=== PATIENT | male | born 1970 | race Two or more races ===

== ENCOUNTER 2024-07-25 12:38 | Emergency (ER) | payer OTHER ==
[~2024-07-25] VITALS: Ht 177.8 cm; Wt 77.3 kg
--- NOTE | 2024-07-25 12:50 | ED.PDOC ---
HPI Comments 53 y/o M, BIBA, with PMHx of anxiety presents to the ED for CC of chest pain. EMS reports, patient is coming from home where he complains of substernal chest pain [id number]. Patient relays, that he has been experiencing substernal chest pain [id number] due to his anxiety caused by his aunt passing x4days ago. Patient states, that he smoked THC out of an electronic pen to try and relieve symptoms; symptoms worsened with increase anxiety and right arm numbness. Patient comments on, taking Aspirin and doubling up on his Prozac medication. Upon arrival to scene, patient was found to be tachycardiac with a HR of 165; Patient was given a 300mL Bolus in route to the ED. Patient denies headache, blurred vision, nausea, or vomiting. No other symptoms or modifying factors present at this time. 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, Medications, Allergies Allergies: Coded Allergies: NO KNOWN ALLERGIES (Unverified , 07/25/24) Information Source: Patient, Emergency Med Personnel Mode of Arrival: EMS Severity: Moderate Timing: Hours Duration: Since onset Prehospital treatment: IVF Location: Substernal Radiation: No Radiation Onset: At Rest Cardiac Risk Factors: None PE Risk Factors: None History of: None Modifying Factors: Nothing Associated Signs and Symptoms: None Past Medical History PAST MEDICAL HISTORY: Anxiety Surgical History: Cholecystectomy Family History Family History: Unknown Social History Smoker: Non-Smoker Alcohol: Denies ETOH Use Drugs: Marijuana Lives In: Home Constitutional: denies: chills, diaphoresis, fatigue, fever, malaise, sweats, weakness, others EENTM: denies: blurred vision, double vision, ear bleeding, ear discharge, ear drainage, ear pain, ear ringing, eye pain, eye redness, hearing loss, mouth pain, mouth swelling, nasal discharge, nose bleeding, nose congestion, nose pain, photophobia, tearing, throat pain, throat swelling, voice changes, others Respiratory: denies: cough, hemoptysis, orthopnea, SOB at rest, shortness of breath, SOB with excertion, stridor, wheezing, others Cardiovascular: reports: chest pain; denies: dizzy spells, diaphoresis, Dyspnea on exertion, edema, irregular heart beat, left arm pain, lightheadedness, palpitations, PND, syncope, others Gastrointestinal: denies: abdomen distended, abdominal pain, blood streaked bowels, constipated, diarrhea, dysphagia, difficulty swallowing, hematemesis, melena, nausea, poor appetite, poor fluid intake, rectal bleeding, rectal pain, vomiting, others Genitourinary: denies: burning, dysuria, flank pain, frequency, hematuria, incontinence, penile discharge, penile sore, pain, testicle pain, testicle swelling, urgency, others Neurological: denies: dizziness, fainting, headache, left sided numbness, left sided weakness, numbness, paresthesia, pre-existing deficit, right sided num bness, right sided weakness, seizure, speech problems, tingling, tremors, weakness, others Musculoskeletal: denies: back pain, gout, joint pain, joint swelling, muscle pain, muscle stiffness, neck pain, others Integumetry: denies: bruises, change in color, change in hair/nails, dryness, laceration, lesions, lumps, rash, wounds, others Allergic/Immunocompromised: denies: Difficulty Healing, Frequent Infections, Hives, Itching, others Hematologic/Lymphatic: denies: anemia, blood clots, easy bleeding, easy bruising, swollen glands, others Endocrine: denies: excessive hunger, excessive sweating, excessive thirst, excessive urination, flushing, intolerance to cold, intolerance to heat, unexplained weight gain, unexplained weight loss, others Psychiatric: reports: anxiety; denies: bipolar disorder, depression, hopeless, panic disorder, schizophrenia, sleepless, suicidal, others All Other Systems: Reviewed and Negative Physical Exam General Appearance: Moderate Distress HEENT: Normal ENT Inspection, Pharynx Normal, TMs Normal Neck: Full Range of Motion, Non-Tender, Normal, Normal Inspection Respiratory: Chest Non-Tender, Lungs Clear, No Accessory Muscle Use, No Respiratory Distress, Normal Breath Sounds Cardiovascular: No Edema, No JVD, No Murmur, No Gallop, Tachycardia Breast Exam: Deferred Gastrointestinal: No Organomegaly, Non Tender, No Pulsatile Mass, Normal Bowel Sounds, Soft Genitalia: Deferred Pelvic: Deferred Rectal: Deferred Extremities: No calf tenderness, Normal capillary refill, Normal inspection, Normal range of motion, Non-tender, No pedal edema Musculoskeletal : Apperance: Normal Neurologic: Alert, 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 Was a procedure done?: No CP Differential Dx Differential Diagnosis: Anxiety / Panic Attack, Sinus Tachycardia X-Ray, Labs, Meds, VS Vital Signs Date Time Temp Pulse Resp B/P (MAP) Pulse Ox O2 Delivery O2 Flow Rate FiO2 07/25/24 13:55 118 18 95 Room Air* 0 21 07/25/24 13:55 98.6 118 18 110/72 (85) 95 98.6 07/25/24 13:53 122 07/25/24 12:50 128 07/25/24 12:47 128 07/25/24 12:40 Room Air* 0 21 07/25/24 12:40 98.7 138 20 145/88 (107) 96 98.7 Lab Test 07/25/24 13:40 07/25/24 12:51 Range/Units Troponin I High Sensitivity 3 L < 3 L </=54 ng/L White Blood Count 9.0 4.4-10.8 10^3/uL Red Blood Count 5.10 4.5-5.90 10^6/uL Hemoglobin 15.0 13.5-17.5 g/dL Hematocrit 42.0 41.0-53.0 % Mean Corpuscular Volume 82.5 80.0-100.0 fL Mean Corpuscular Hemoglobin 29.4 28.0-32.0 pg Mean Corpuscular Hemoglobin Concent 35.6 32.0-36.0 g/dL Red Cell Distribution Width 16.3 H 11.8-14.3 % Platelet Count 307 140-450 10^3/uL Mean Platelet Volume 7.4 6.9-10.8 fL Neutrophils (%) (Auto) 81.6 H 37.0-80.0 % Lymphocytes (%) (Auto) 11.3 10.0-50.0 % Monocytes (%) (Auto) 5.9 0.0-12.0 % Eosinophils (%) (Auto) 0.6 0.0-7.0 % Basophils (%) (Auto) 0.6 0.0-2.0 % Neutrophils # (Auto) 7.4 1.6-8.6 10 ^3/uL Lymphocytes # (Auto) 1.0 0.4-5.4 10 ^3/uL Monocytes # (Auto) 0.5 0-1.3 10 ^3/uL Eosinophils # (Auto) 0.1 0-0.8 10 ^3/uL Basophils # (Auto) 0 0-0.2 10 ^3/uL Nucleated Red Blood Cells 0.6 % Sodium Level 139 136-145 mmol/L Potassium Level 3.8 3.5-5.1 mmol/L Chloride Level 104 98-107 mmol/L Carbon Dioxide Level 27 20-31 mmol/L Anion Gap 8 5-15 Blood Urea Nitrogen 12 9-23 mg/dL Creatinine 0.91 0.700-1.30 mg/dL Glomerular Filtration Rate Calc 100 >90 mL/min BUN/Creatinine Ratio 13.2 10.0-20.0 Serum Glucose 139 H 74-106 mg/dL Calcium Level 9.6 8.7-10.4 mg/dL Current Medications Medications (Trade) Dose Ordered Sig/Shahid Route Start Time Stop Time Status Last Admin Aspirin 162 mg ONCE ONCE PO 07/25/24 12:45 07/25/24 12:46 DC 07/25/24 13:53 CXR SHOWS: IMPRESSION: 1. No evidence of acute disease. The patient's CBC and chemistry panel is within normal limits The patient was given aspirin 162 mg by mouth The troponin level is negative At this time, the patient was being admitted to the hospitalist Patient remains tachycardic The D-dimer has also been ordered We have discussed the findings with the patient and he is in agreement with the management. Images Reviewed?: Images reviewed and evaluated by me Time of 1ST Reevaluation: 13:20 Reevaluation 1ST: Unchanged Patient Education/Counseling: Diagnosis, Treatment Family Education/Counseling: No Family Present Departure 1 Departure Time of Disposition: 14:29 Impression: Primary Impression: Acute chest pain Disposition: ADMITTED INPATIENT Admit to: [facility] Condition: Fair Critical Care Note Critical Care Time?: Yes (45 min-critical care time only) Stability Stability form required: Yes Unstable for transfer: Telemetry monitoring (Telemetry monitoring required), ED Physician Assesment (Clinical assesment) Heart Score Heart Score: Heart Score Response (Comments) Value History Slightly Suspicious 0 EKG Normal 0 Age 45-64 1 Risk Factors 1 or 2 risk factors 1 Troponin Normal limit 0 Total 2 I personally scribed for FCO SINGLETON MD ([email or web address]) on 07/25/24 at 12:50. Electronically submitted by Yeimy Allison ([email or web address]). I personally scribed for FCO SINGLETON MD ([email or web address]) on 07/25/24 at 12:52. El ectronically submitted by Yeimy Allison ([email or web address]). I personally scribed for FCO SINGLETON MD ([email or web address]) on 07/25/24 at 13:46. Elec tronically submitted by Yeimy Allison ([email or web address]). FCO SINGLETON MD Jul 25, 2024 12:50
--- NOTE | 2024-07-25 13:18 | DVH ---
INDICATION: CP TECHNIQUE: Frontal view of the chest. COMPARISON: None FINDINGS: . The heart and mediastinal contours are grossly unremarkable. There is no evidence of pleural disea se. The lungs are clear. The bony structures of the chest are intact without fracture. IMPRESSION: 1. No evidence of acute disease.
[2024-07-25 13:25] LABS: Chloride 104 mmol/L (98-107); Potassium 3.8 mmol/L (3.5-5.1); Sodium 139 mmol/L (136-145)
[2024-07-25 13:26] LABS: Anion Gap 8 (5-15); Carbon Dioxide 27 mmol/L (20-31)
[2024-07-25 13:27] LABS: Calcium 9.6 mg/dL (8.7-10.4)
[2024-07-25 13:32] LABS: Basophils # (auto) 0 10 ^3/uL (0-0.2); Basophils % (auto) 0.6 % (0.0-2.0); Eosinophils # (auto) 0.1 10 ^3/uL (0-0.8); Eosinophils % (auto) 0.6 % (0.0-7.0); Glucose 139 mg/dL (74-106); Lymphocytes % (auto) 11.3 % (10.0-50.0); Mean Corpuscular Hemoglobin 29.4 pg (28.0-32.0); Mean Corpuscular Hgb Conc. 35.6 g/dL (32.0-36.0); Mean Corpuscular Volume 82.5 fL (80.0-100.0); Monocytes # (auto) 0.5 10 ^3/uL (0-1.3); Monocytes % (auto) 5.9 % (0.0-12.0); Neutrophils # (auto) 7.4 10 ^3/uL (1.6-8.6); Neutrophils % (auto) 81.6 % (37.0-80.0); Nucleated Red Blood Cells % 0.6 %; Platelet Count (auto) 307 10^3/uL (140-450); Red Cell Distribution Width 16.3 % (11.8-14.3)
[2024-07-25 13:49] LABS: BUN/Creatinine Ratio 13.2 (10.0-20.0); Blood Urea Nitrogen 12 mg/dL (9-23)
[2024-07-25] MEDS: ASPirin 81 mg TAB PO ONE (13:53)
[2024-07-25 13:55] VITALS: PULSE 118; RESP 18; O2SAT 95
[2024-07-25] MEDS: LORazepam 0.5 MG TAB PO ONE (23:01)
[2024-07-26 01:11] VITALS: BP 138/82; PULSE 72; RESP 20; TEMP 99.4; O2SAT 96
--- NOTE | 2024-07-26 10:23 | ECG ---
[facility], [place] Test Date: 2024-07-25 Test Time: 12:47:56 Pat Name: TAYLOR TRINIDAD Department: er Room: Gender: M Pairer Odds: gp : 1970 Requested By: FCO SINGLETON Order Number: [id number] Reading MD: David Delong Measurements Intervals [place] Rate: 128 P: 57 VT: 129 QRS: 57 QRSD: 94 T: 25 QT: 320 QTc: 467 Interpretive Statements Sinus tachycardia Probable left atrial enlargement Artifact in lead(s) I,II,aVR,aVL,aVF,V3,V4,V5 Electronically Signed On 07-26-2024 13:17:26 PDT by David Delong Please click the below link to view image of tracing.
--- NOTE | 2024-07-26 10:24 | ECG ---
[facility] Test Date: 2024-07-25 Test Time: 13:53:59 Pat Name: TAYLOR TRINIDAD Department: ED Room: Gender: M Fancy Wire Drawer: gp : 1970 Requested By: FCO SINGLETON Order Number: [id number] Reading MD: David Delong Measurements Intervals [place] Rate: 122 P: 55 MN: 139 QRS: 44 QRSD: 89 T: 41 QT: 323 QTc: 460 Interpretive Statements Sinus tachycardia Artifact in lead(s) III,aVF,V1,V6 and baseline wander in lead(s) V6 Electronically Signed On 07-26-2024 13:17:49 PDT by David Delong Please click the below link to view image of tracing.
== END 2024-07-26 03:07 | disposition short-term general hospital (02) ==
LOC: EDBD 12:38 → ER 12:42
DX: R07.89 Other chest pain (principal); F12.90 Cannabis use, unspecified, uncomplicated; F41.9 Anxiety disorder, unspecified; Z90.49 Acquired absence of other specified parts of digestive tract
CPT/HCPCS: 36415; 71045; 80048; 84484; 85025; 93005